=== PATIENT | male | born 1945 | race Caucasian/White ===

== ENCOUNTER → 2020-02-19 | Outpatient (CLI) | payer OTHER | LOC: LAB 12:08 | PROVIDERS: ATTEND Internal Medicine Sleep Medicine | DX: Z01.812 Encounter for preprocedural laboratory examination (principal); Z20.828 Contact with and (suspected) exposure to other viral communicable diseases ==

== ENCOUNTER → 2020-02-20 | Outpatient (CLI) | payer OTHER ==
--- NOTE | 2020-02-29 12:47 | SLE ---
[facility] [address] [address] POLYSOMNOGRAPHY STUDY Name: JOHN GOODMAN Room #: [facility]#: [id number] Admission: 02/20/20 Attend Phys: Joseph Hoffman MD Discharge: Date of : 45 Report #: [id number] THIS REPORT FOR: cc: [facility] - Family physician unknown FAM - Family physician unknown Joseph Hoffman MD ~ CC: Joseph MORENO unknown Zeke Chester MD DATE OF SERVICE: 02/20/2020 SLEEP STUDY ATTENDING PHYSICIAN: Dr. Zeke Chester The patient is a 74-year-old who weighs 291 pounds with a BMI of 41.7. The patient's [place] score was 7. The patient has a history of sleep apnea and has been on CPAP at 8 cm water. However, the patient has been noticed to be having increasing excessive daytime somnolence. In the interim since his last sleep study, he has put on at least 70 pounds. The patient was requested to have CPAP/BiPAP titration study to determine the optimum PAP pressure. During the night study, the patient spent 485 minutes in bed and slept for 366 minutes with a sleep efficiency of 75%. Sleep latency was 7.7 minutes with a REM latency of 166 minutes. Sleep architecture showed increased stage 1 and stage 2 sleep, normal slow wave and reduced REM sleep, which was 13% of the total sleep time. EKG monitoring revealed an average heart rate of 55 beats per minute. No sustained arrhythmias observed. No PLM seen. The patient was started on CPAP at a pressure of 8 cm of water and titrated up to 20 cm water. The patient had increasing central apneas. As a result, the patient was switched to BiPAP. The BiPAP was started at 16/12 and titrated up to 20/15. At the final pressure, the patient slept for 94 minutes including 35 minutes of supine REM sleep. The patient's AHI was reduced to 7 per hour and oxygen saturation remained above 88%. I would recommend final BiPAP pressure of 21/16. IMPRESSION: 1. Sleep apnea diagnosed by previous sleep study. 2. No clinically significant periodic limb movements. 3. Resolution of nocturnal hypoxia with final BiPAP pressure. [facility] [address] [place] [address] POLYSOMNOGRAPHY STUDY Name: MAXINEJOHN Room #: [facility]#: [id number] Admission: 02/20/20 Attend Phys: Joseph Hoffman MD Discharge: Date of : 45 Report #: [id number] RECOMMENDATIONS: 1. BiPAP at a pressure of 21/16 should be used on a nightly basis. 2. Follow up in 4-6 weeks to assess compliance with BiPAP and to document clinical improvement. 3. Weight loss is strongly advised. 4. Avoid [employer] depressants. 5. Cautioned regarding driving until symptoms of sleep apnea resolve with the use of BiPAP. <ELECTRONICALLY SIGNED> By: Joseph Hoffman MD 02/29/20 [id number] 1950 Joseph Hoffman MD /hugo
== END ==
LOC: SLEEPLAB 02-19 19:21
PROVIDERS: ATTEND Internal Medicine Critical Care Medicine
DX: G47.33 Obstructive sleep apnea (adult) (pediatric) (principal)